=== PATIENT | female | born 1970 | race Hispanic/Latino ===

== ENCOUNTER 2022-06-28 15:11 | Emergency (ER) | payer OTHER, SELFPAY ==
--- NOTE | ~2022-06-28 | CT_ITS ---
EXAMINATION: CT abdomen pelvis wo con DATE: 06/28/2022 18:34 INDICATION: abd pain, uti symptoms TECHNIQUE: Computed tomography (CT) of the abdomen and pelvis was performed without intravenous contr ast. Automated exposure control and iterative reconstruction technique were employed. The dose-length product was 884.37 mGy-cm. COMPARISON: None. FINDINGS: Lower thorax: Coronary artery and mitral calcification. Bibasilar atelectasis/scar Liver: Marked enlargement. Biliary/Gallbladder: Cholelithiasis. No bile duct dilation. Pancreas: No mass or duct dilation. Spleen: Normal. Adrenals:No mass. Kidneys: No mass, stone, or hydronephrosis. GI tract: No small or large bowel dilation. Appendix not visualized. Long segment mild wall edema and loss of haustration in the transverse colon. Submucosal fat in the cecum and ascending colon, common ly seen obesity and chronic inflammatory bowel disease. Mesentery/Peritoneum: No free air. Mesenteric fat stranding extending from the celiac axis into the b ilateral conal fascia and along periaortic and distal peritoneal planes into the pelvis were there is presacral and perirectal stranding. Retroperitoneum: No mass. Atherosclerotic abdominal aortic and/or arterial calcifications. Pelvis: Pelvic organs are within normal limits. Soft Tissues: Soft tissues and body wall unremarkable. Bones: No acute osseous finding. IMPRESSION: Massive hepatomegaly. Infectious, inflammatory, or ischemic transverse colitis. Nonspecific mesenteri c inflammation/edema, possibly related to the hepatic process or transverse colon inflammation. Reviewed, dictated and finalized at location K. IMPRESSION: Massive hepatomegaly. Infectious, inflammatory, or ischemic transverse colitis. Nonspecific mesenteric inflammation/edema, possibly related to the hepatic pro cess or transverse colon inflammation.
[2022-06-28 15:25] VITALS: BP 108/75; PULSE 83; RESP 18; TEMP 36.4; O2SAT 97
[2022-06-28 17:01] LABS: Basophils Absolute Auto 0.1 K/mm3 (0.0-0.1); Basophils Percent Auto 0.8 % (0.2-1.2); Eosinophils Absolute Auto 0.2 K/mm3 (0-0.3); Eosinophils Percent Auto 1.8 % (0-4.4); Hematocrit 37.9 % (37.0-47.0); Immature Granulocyte Absolute 0.04 K/mm3 (0.00-0.031); Immature Granulocyte Percent A 0.4 % (0-0.5); Lymphocytes Absolute Auto 2.91 K/mm3 (0.9-3.2); Lymphocytes Percent Auto 27.1 % (18.3-44.2); Mean Corpuscular HGB Conc 34.3 g/dl (32-36); Mean Corpuscular Volume 102.2 fl (80-100); Mean Platelet Volume 10.7 fl (7.4-10.4); Monocytes Absolute Auto 0.4 K/mm3 (0.1-0.6); Monocytes Percent Auto 3.4 % (2.6-8.5); Neutrophils Absolute Auto 7.2 K/mm3 (1.3-6.7); Neutrophils Percent Auto 66.5 % (45.5-73.1); Platelet Count Result 200 k/mm3 (150-375); Red Blood Count 3.71 M/mm3 (4.2-5.4); Red Cell Distribution Width 17.4 % (11.5-14.5); White Blood Count 10.7 K/mm3 (4.5-10.0)
[2022-06-28 17:13] VITALS: BP 132/88; PULSE 86; O2SAT 98
[2022-06-28 17:20] LABS: Alanine Aminotransferase 56 U/L (6-35); Albumin Level 4.7 g/dL (3.5-5.1); Alkaline Phosphatase 131 U/L (38-126); Anion Gap 14 mmol/L (8-16); Aspartate Amino Transferase 108 U/L (14-36); Bilirubin,Total 1.1 mg/dL (0.2-1.3); Blood Urea Nitrogen 9 mg/dL (7-17); Calcium 9.3 mg/dL (8.4-10.2); Carbon Dioxide 28 mmol/L (22-30); Chloride 100 mmol/L (98-107); Estimated CRCL calculation 75 ml/min; Estimated Glomerular Filt Rate > 60; Glucose 114 mg/dL (65-110); Lipase 98 U/L (23-300); Potassium 2.6 mmol/L (3.4-5.0); Sodium 142 mmol/L (137-145)
--- NOTE | 2022-06-28 17:21 | PC.NURSE ---
vrbo ct abd with con per erp val toledo
--- NOTE | 2022-06-28 17:25 | ECG_ITS ---
Measurements Intervals [place] Rate: 80 P: 55 LA: 141 QRS: 29 QRSD: 109 T: 109 QT: 380 QTc: 439 Interpretive Statements SINUS RHYTHM BASELINE ARTIFACT NONSPECIFIC T-WAVE ABNORMALITY BORDERLINE ECG NO PREVIOUS ECG AVAILABLE FOR COMPARISON Electronically Signed On 06-29-2022 15:37:53 CDT by Shorty Porter M.D.
--- NOTE | 2022-06-28 17:27 | ED.GENADULT ---
HPI - General Adult General Chief complaint: Urogenital-Female Stated complaint: blood in urine Time Seen by Provider: 06/28/22 17:07 History of Present Illness HPI narrative: 52-year-old female presents the emergency room for evaluation of hematuria. Patient is also complaining of lower back pain that started around the same time as the hematuria. Denies any abdominal pain or discomfort. Denies any nausea or vomiting. Does admit to multiple episodes of nonmelanotic and nonbloody diarrhea recently. Patient also admits a to your heavy alcohol use history, stating that she has weaned down from 12 drinks a day to 3 drinks a day. Denies any dysuria. Denies vaginal bleeding or vaginal discharge. Related Data Allergies Allergy/AdvReac Type Severity Reaction Status Date / Time strawberry Allergy Unknown Hives Verified 06/28/22 17:48 Contrast Media Allergy Unknown Hives Uncoded 06/28/22 17:48 SHRIMP Allergy Unknown Hives Uncoded 06/28/22 17:48 Review of Systems Review of Systems: CONSTITUTIONAL: Denies fever, chills, or sweats. EYES: Denies visual changes, redness, or discharge. ENT: Denies rhinorrhea, congestion, sore throat, or otalgia. CARDIOVASCULAR: Denies chest pain, palpitations, or edema. RESPIRATORY: Denies cough or dyspnea. GASTROINTESTINAL: Denies abdominal pain, nausea, vomiting, or diarrhea. GENITOURINARY: Reports hematuria SKIN: Denies rash or itching. MUSCULOSKELETAL: Reports lower back pain NEUROLOGIC: Denies headache, numbness, dizziness, or weakness. PSYCHIATRIC: Denies anxiety or depression. Exam Narrative: GENERAL: Well-appearing, well-nourished, no physical limitations, and in no acute distress. HEAD: Normocephalic, atraumatic. EYES: Conjunctivae normal, PERRLA and EOMI. CHEST: Clear to auscultation. No respiratory distress. No wheezes rales or rhonchi. HEART: Regular rate and rhythm. No murmur heard. Normal peripheral pulses. ABDOMEN: Soft, nontender, nondistended, normal active bowel sounds. BACK: No CVA tenderness EXTREMITIES: Normal range of motion. No edema. No clubbing or cyanosis SKIN: Warm, dry, no rash. No noted wounds NEURO: No focal deficits. Alert and oriented x3. MAEW. CN's II-XI intact bilaterally, normal gait PSYCH: Cooperative. Normal mood and affect. Course Vital Signs Vital signs: Vital Signs Temperature 36.4 C L 06/28/22 15:25 Pulse Rate 83 06/28/22 15:25 Respiratory Rate 18 06/28/22 15:25 Blood Pressure 108/75 06/28/22 15:25 Pulse Oximetry 97 06/28/22 15:25 Temperature 36.4 C L 06/28/22 15:25 Pulse Rate 80 06/28/22 19:28 Respiratory Rate 17 06/28/22 19:28 Blood Pressure 148/96 H 06/28/22 19:28 Pulse Oximetry 98 06/28/22 19:28 Medical Decision Making Vital Signs Vital Signs: Vital Signs Temperature 36.4 C L 06/28/22 15:25 Pulse Rate 83 06/28/22 15:25 Respiratory Rate 18 06/28/22 15:25 Blood Pressure 108/75 06/28/22 15:25 Pulse Oximetry 97 06/28/22 15:25 Temperature 36.4 C L 06/28/22 15:25 Pulse Rate 80 06/28/22 19:28 Respiratory Rate 17 06/28/22 19:28 Blood Pressure 148/96 H 06/28/22 19:28 Pulse Oximetry 98 06/28/22 19:28 Lab Data Result diagrams: 06/28/22 16:55 06/28/22 16:55 Labs: Lab Results 06/28/22 06/28/22 06/28/22 Range/Units 16:55 16:55 16:55 WBC 10.7 H (4.5-10.0) K/mm3 RBC 3.71 L (4.2-5.4) M/mm3 Hgb 13.0 (12.0-15.0) g/dL Hct 37.9 (37.0-47.0) % MCV 102.2 H (80-100) fl MCH 35.0 H (26-34) pg MCHC 34.3 (32-36) g/dl RDW 17.4 H (11.5-14.5) % Plt Count 200 (150-375) k/mm3 MPV 10.7 H (7.4-10.4) fl Immature Gran % (Auto) 0.4 (0-0.5) % Neut % (Auto) 66.5 (45.5-73.1) % Lymph % (Auto) 27.1 (18.3-44.2) % Nicholas % (Auto) 3.4 (2.6-8.5) % Eos % (Auto) 1.8 (0-4.4) % Baso % (Auto) 0.8 (0.2-1.2) % Lymph # (Auto) 2.91 (0.9-3.2) K/mm3 Nicholas # (Auto) 0.4 (0.1-0.6) K/mm3 Eos # (A
--- NOTE | 2022-06-28 17:52 | PC.NURSE ---
pt unable to provide urine sample at this time. pt declining straight catheter.
[2022-06-28] MEDS: SODIUM CHLORIDE 0.9% IV 1,000 ML 999 ML IV CONT (17:53)
[2022-06-28] MEDS: POTASSIUM CHLORIDE INJ 40 MEQ in SODIUM CHLORIDE 0.9% IV 500 ML 130 MEQ IVPB (18:01)
[2022-06-28 18:10] LABS: Magnesium 1.6 mg/dL (1.6-2.3)
[2022-06-28 19:17] LABS: Add Urine Microscopic? YES; Appearance Urine Clear (Clear); Bacteria Urine Trace /hpf; Bilirubin Urine Negative (Negative); Blood Urine Negative (Negative); Color Urine Amber (Yellow); Glucose Urine UA Negative (Negative); Ketones Urine Negative (Negative); Leukocyte Esterase Ur Negative LEU/UL (Negative); Mucus Urine Few /lpf; Nitrate Urine Negative (Negative); Protein Urine 1+ mg/dL (Negative); RBC Urine 0-2 /hpf (0-2); Specific Grav Ur 1.024 (1.001-1.035); Squamous Epithelial Cell Urine Occasional /hpf (Few); WBC Urine 0-3 /hpf
[2022-06-28 19:28] VITALS: BP 148/96; PULSE 80; RESP 17; O2SAT 98
--- NOTE | 2022-06-28 19:28 | PC.NURSE ---
Assumed care of pt at this time. Pt alert and upright on stretcher, no request at this time. Updated on POC.
[2022-06-28] MEDS: THIAMINE HCL 200 MG/2 ML VIAL 100 MG IV PUSH (19:37)
[2022-06-28 19:52] LABS: Lactic Acid Reflex 1.9 mmol/L (0.7-2.0)
[2022-06-28] MEDS: POTASSIUM CHLORIDE 20 MEQ PACKET (FOR LIQUID) 40 MEQ PO (19:57)
[2022-06-28 20:32] VITALS: PULSE 78; RESP 12; O2SAT 96
[2022-06-28 23:24] VITALS: BP 141/94; PULSE 77; RESP 19; O2SAT 95
== END 2022-06-28 23:25 | disposition home or self-care (01) ==
PROVIDERS: Emergency Medicine; Emergency Provider Nurse Practitioner Family; PCP Internal Medicine
DX: K52.9 Noninfective gastroenteritis and colitis, unspecified (principal); E87.6 Hypokalemia
CPT/HCPCS: 36415; 74176; 80053; 81001; 83605; 83690; 83735; 85025; 93005; 96365; 96366; 96375; 99284; A9270; J3411; J3480; J7030; J7040